=== PATIENT | male | born 1945 | race Caucasian/White ===

== ENCOUNTER 2017-04-30 20:53 | Inpatient (IN) ==
[2017-04-30] MEDS ORDERED: TYLENOL PO ONE (21:22)
[2017-04-30] MEDS ORDERED: NS 1,000 ML IV ONE ×2 (21:33→22:35)
[2017-04-30] MEDS ORDERED: ROCEPHIN 1 GM/NS 1 GM/50 ML IVPB IV ONE (21:34)
[2017-04-30] MEDS ORDERED: ZOFRAN IV ONE (21:34)
[2017-04-30] MEDS ORDERED: MORPHINE IV ONE (21:34)
[2017-04-30 22:09] LABS: BASO% 0.1 % (0.0-0.8); EOS# 0.03 X1000 (0.0-0.7); EOS% 0.2 % (0.0-10.0); HEMOGLOBIN 14.7 g/dL (14.0-18.0); IMM GRAN# 0.04 X1000 (0.0-0.04); IMM GRAN% 0.3 % (0.0-0.5); LYMPH# 0.82 X1000 (1.2-3.4); LYMPH% 5.6 % (20.5-51.1); MANUAL DIFF NEEDED? YES; MCH 32.2 PG (27-31); MCHC 34.2 g/dL (33-37); MCV 94.3 FL (81-99); MONO# 1.26 X1000 (0.11-0.59); MONO% 8.6 % (1.7-9.3); MPV 11.2 FL (7.4-10.4); NEUT% 85.2 % (42.2-75.2); PLT 191 X1000 (130-400); RBC 4.56 XMIL (4.7-6.1)
[2017-04-30 22:10] LABS: BANDS 6 % (0-1); EOS 1 % (1-10); LYMPHS 5 % (21-51); MONO 4 % (1-9)
[2017-04-30 22:19] LABS: BILIRUBIN URINE NEGATIVE (NEGATIVE); BLOOD URINE 2+ (NEGATIVE); CLARITY CLEAR (CLEAR); COLOR YELLOW; GLUCOSE URINE NEGATIVE (NEGATIVE); LEUKOCYTES URINE 2+ (NEGATIVE); NITRITE URINE POSITIVE (NEGATIVE); PROTEIN URINE 1+(30 mg/dL) mg/dL (NEGATIVE); UROBILINOGEN URINE NORMAL
[2017-04-30 22:20] LABS: INR 1.2 (0.86-1.15); PROTIME 15.5 Seconds (12.1-15.5)
[2017-04-30 22:21] LABS: PTT PL 34.5 Seconds (22.6-43.9)
[2017-04-30 22:22] LABS: URINE SOURCE CLEAN CATCH
[2017-04-30 22:23] LABS: URINE CULTURE PL NEEDED? YES; URINE EPITHELIAL CELLS <10 /HPF (<10)
[2017-04-30 22:26] LABS: ALBUMIN 4.2 g/dL (3.5-5.0); CALCIUM 9.1 mg/dL (8.8-10.2); POTASSIUM 3.4 mmol/L (3.5-5.1); TOTAL PROTEIN 6.6 g/dL (6.3-8.3)
[2017-04-30] MEDS ORDERED: MORPHINE IV PRN (22:35)
[2017-04-30] MEDS ORDERED: TYLENOL PO PRN (22:35)
--- NOTE | 2017-04-30 22:40 | PROVIDER DOCUMENTATION ---
This chart was entered by Letty Jennings Scribe, acting as scribe for Mahendra Herrera MD. HPI-General Adult - General Chief Complaint: UTI Symptoms Stated Complaint: UTI SX Time Seen by Provider: 04/30/17 21:18 Source: patient Allergies/Adverse Reactions: Patient Allergies Allergy/AdvReac Type Severity Reaction Status Date / Time promethazine HCl * Allergy Mild VOMITING Verified 04/30/17 21:12 [From Phenergan] Home Medications: Home Medication List Medication Instructions Recorded Confirmed Last Taken Type Aspirin 81 mg PO DAILY 02/28/14 04/30/17 10/22/16 History Gabapentin [Neurontin] 100 mg PO QAM 02/28/14 04/30/17 10/22/16 History Gabapentin [Neurontin] 400 mg PO QHS 02/28/14 04/30/17 10/21/16 History Gemfibrozil 600 mg PO BID 02/28/14 04/30/17 10/22/16 History Metoprolol [Lopressor] 50 mg PO DAILY 02/28/14 04/30/17 10/22/16 History Ramipril [Altace] 10 mg PO BID 02/28/14 04/30/17 10/22/16 History Allopurinol [Zyloprim] 300 mg PO DAILY 10/22/16 04/30/17 10/22/16 History Clorazepate [Tranxene] 7.5 mg PO QHS 10/22/16 04/30/17 10/21/16 History Cyanocobalamin (Vitamin B-12) 1,000 mcg PO DAILY 10/22/16 04/30/17 10/22/16 History [Cyanocobalamin] Escitalopram Oxalate [Lexapro] 10 mg PO DAILY 10/22/16 04/30/17 10/22/16 History Probenecid [Benemid] 500 mg PO DAILY 10/22/16 04/30/17 10/22/16 History Tamsulosin [Flomax] 0.4 mg PO QHS 10/22/16 04/30/17 10/21/16 History Triamterene/Hydrochlorothiazid 1 each PO BID 10/22/16 04/30/17 10/22/16 History [Triamterene-Hctz 37.5-25 mg Cp] Omeprazole [Prilosec] 40 mg PO DAILY@0700 #30 capsule. 10/23/16 04/30/17 Unknown Rx - History of Present Illness -Gen Adult Nature of Presenting Problems: PT IS A 72YOM PRESENTING TO THE ED C/O FEVER/MALAISE AND PAINFUL URINATION. PT STATES THAT AT 0230 THIS AM HE WOKE WITH CHILLS, FEVER, MALAISE AND HURTING TO URINATE. PT STATES IT WAS A SUDDEN ONSET THIS AM AND IS HAVING BILATERAL CVA PAIN WITH NAUSEA BUT NO VOMITING AT THIS TIME. NO OTHER COMPLAINTS NOTED AT THIS TIME. Location of Pain/Injury: reports: generalized Pain Radiation: reports: flank (L), flank (R) Quality of Pain: reports: aching, burning, cramping Severity: reports: moderate Onset/Duration: reports: 24 hours ago Timing: reports: still present, getting worse Context/Activities at Onset: reports: sleep Modifying Factors: improves with: urinating Associated Symptoms: reports: back/neck pain, fatigue, fever/chills, genitourinary problems, loss of appetite, malaise, muscle aches, nausea, weakness. denies: chest pain, diarrhea, syncope, vomiting, trouble walking Similar Symptoms Previously?: No Recently seen or treated by another doctor?: No Review of Systems - Adult - REVIEW OF SYSTEMS - ADULT Constitutional: reports: see HPI, chills, fever, fatique Eyes: reports: no symptoms reported Ears, Nose, Mouth & Throat: reports: no symptoms reported Cardiovascular: reports: no symptoms reported Respiratory: reports: no symptoms reported Gastrointestinal: reports: no symptoms reported Genitourinary: reports: see HPI, dysuria, flank pain. denies: frequency Musculoskeletal: reports: see HPI, back pain (BILATERAL CVA TENDERNESS), joint pain, muscle aches. denies: bone pain, neck pain Integumentary: reports: no symptoms reported Neurological: reports: no symptoms reported Psychiatric: reports: no symptoms reported Endocrine: reports: no symptoms reported Hematologic/Lymphatic: reports: no symptoms reported Allergic/Immunologic: reports: no symptoms reported All Other Systems: Reviewed and Negative Past History - Adult - PAST MEDICAL HISTORY-ADULT Review of Records: reports: Old Records Reviewed, Nursing Assessment Review, Medications Reviewed, Social history reviewed & non-contributory. Major Childhood Illnesses: reports: denies history Cardiovascular: reports: HTN, hyperlipidemia Respiratory: reports: denies history Gastrointestinal: reports: denies history Obstetrical/Gynecological: reports: denies history Genitourinary: reports: denies history Musculoskeletal: reports: denies history Neurological: reports: denies history Endocrine/Immune: reports: other (neuropathy) Other Conditions: reports: denies history - PRIOR SURGERIES/PROCEDURES Surgical/Procedure History: reports: orthopedic (extremity) - IMMUNIZATION STATUS Childhood Immunizations: See Nurse Assessment Flu Vaccine: See Nurse Assessment - FAMILY HISTORY Family History: CAD over 55 yo, CVA/TIA - SOCIAL HISTORY Smoking: non-smoker Substance Use: none/never, denies Alcohol Use Frequency: never Living Situation: alone Physical Exam-General - PHYSICAL EXAM-ADULT Initial Vital Signs Reviewed: Yes - CONSTITUTIONAL General Appearance: alert, moderate distress. negative: appears well - EYES Eyes: PERRL/EOMI, pink conjunctivae - HEAD, EARS, NOSE, MOUTH & THROAT HENMT: normocephalic/atraumatic, moist mucous membranes, normal ENT inspection, TMs normal, pharynx normal - NECK Neck: non-tender, full range of motion, supple, normal inspection - RESPIRATORY Respiratory: chest non-tender, lungs clear, normal breath sounds, no pleuratic chest pain, no respiratory distress, no accessory muscle use - CARDIOVASCULAR Cardiovascular: normal peripheral pulses, regular rate, rhythm, no edema, no gallop, no JVD, no murmur - GASTROINTESTINAL (ABDOMEN) Abdominal Exam: normal bowel sounds, non tender, soft, no organomegaly, no pulsatile mass - LYMPHATIC Lymphatic: no adenopathy - MUSCULOSKELETAL Back Exam: no vertebral tenderness, CVA tenderness (BILATERAL). negative: normal inspection, no CVA tenderness Extremity: normal range of motion, non-tender, normal gait, normal inspection, no pedal edema, no calf tenderness, normal capillary refill, pelvis stable - SKIN Integumentary: normal turgor, warm/dry, pallor. negative: normal color - NEUROLOGIC Neurologic: notary public II-XII nml as tested, grossly normal, no motor/sensory deficits - PSYCHIATRIC Psych/Mental Status: normal thought content, normal thought process, oriented x 3, depressed affect. negative: normal mood/affect Progress - PLAN OF CARE/RESULTS Progress/Plan/Lab Results: Vital Signs - 8 hr 04/30/ 21:06 Temperature 101.4 F H Pulse Rate 97 H Respiratory Rate 18 Blood Pressure 145/74 O2 Sat by Pulse Oximetry 95 Orders Category Date Time Status Cardiac Monitoring DIRECTED Care 04/30/17 21:19 Active IV Insertion ORDERED Care 04/30/17 21:19 Completed Notify of + Sepsis Screen NOW Care 04/30/17 21:19 Active BLOOD CULTURE [BLDCUL] Stat Lab 04/30/17 21:45 Ordered CBC WITH DIFF [HEME] Stat Lab 04/30/17 21:45 Ordered CK PROFILE [SP CHEM] Stat Lab 04/30/17 21:45 Ordered COMPREHENSIVE METABOLIC PANEL [CHEM] Stat Lab 04/30/17 21:45 Ordered LACTATE, PLASMA [CHEM] Stat Lab 04/30/17 21:45 Or[address]IME WITH INR PL [COAG] Stat Lab 04/30/17 21:[address] [COAG] Stat Lab 04/30/17 21:45 Ordered TROPONIN T Stat Lab 04/30/17 21:45 Ordered ua [URINALYSIS PL W/POSS RFLX CULT] [URINALYSIS] Stat Lab 04/30/17 21:45 Ordered 0.9% Sodium Chloride Inj [Ns] 1,000 ml Med 04/30/17 21:33 Active IV 999 mls/hr Acetaminophen [Tylenol] Med 04/30/17 21:22 Discontinued 650 mg PO NOW ONE CefTRIAXONE 1 GM/NS [Rocephin 1 gm/Ns] Med 04/30/17 21:34 Active 1 gm in 50 ml IV NOW Morphine Med 04/30/17 21:34 Discontinued 4 mg IV NOW ONE Ondansetron [Zofran] Med 04/30/17 21:34 Discontinued 4 mg IV NOW ONE Orders Category Date Time Status Cardiac Monitoring DIRECTED Care 04/30/17 21:19 Active IV Insertion ORDERED Care 04/30/17 21:19 Completed Notify of + Sepsis Screen NOW Care 04/30/17 21:19 Active BLOOD CULTURE [BLDCUL] Stat Lab 04/30/17 21:45 Ordered CBC WITH DIFF [HEME] Stat Lab 04/30/17 21:30 Results CK PROFILE [SP CHEM] Stat Lab 04/30/17 21:45 Ordered COMPREHENSIVE METABOLIC PANEL [CHEM] Stat Lab 04/30/17 21:45 Ordered LACTATE, PLASMA [CHEM] Stat Lab 04/30/17 21:[address]IME WITH INR [address] [COAG] Stat Lab 04/30/17 21:[address] [COAG] Stat Lab 04/30/17 21:45 Ordered TROPONIN T Stat Lab 04/30/17 21:45 Ordered ua [URINALYSIS PL W/POSS RFLX CULT] [URINALYSIS] Stat Lab 04/30/17 21:45 Ordered 0.9% Sodium Chloride Inj [Ns] 1,000 ml Med 04/30/17 21:33 Active IV 999 mls/hr Acetaminophen [Tylenol] Med 04/30/17 21:22 Discontinued 650 mg PO NOW ONE CefTRIAXONE 1 GM/NS [Rocephin 1 gm/Ns] Med 04/30/17 21:34 Active 1 gm in 50 ml IV NOW Morphine Med 04/30/17 21:34 Discontinued 4 mg IV NOW ONE Ondansetron [Zofran] Med 04/30/17 21:34 Discontinued 4 mg IV NOW ONE Vital Signs - 24 hr 04/30/17 21:06 Temperature 101.4 F H Pulse Rate 97 H Respiratory Rate 18 Blood Pressure 145/74 O2 Sat by Pulse Oximetry 95 Result Diagrams: 04/30/17 21:30 04/30/17 21:30 Departure - Departure Date of Disposition Decision: 04/30/17 Time of Disposition Decision: 22:39 DIAGNOSIS: Pyelonephritis, acute Disposition: ADMITTED INPATIENT 09 Certified Medical Emergency: Emergent Condition: Fair Referrals and Follow-Ups: Ke Lino MD [Primary Care Provider] - - Critical Care Note This patient required my direct & personal management of CC.: No This chart was documented by the indicated scribe, (Letty Jennings Scribe) and accurately reflects the services I performed and decisions made by me, Mahendra Herrera MD, as attested by the provider's signature.
[2017-05-01] MEDS: MORPHINE IV PRN ×4 (08:17→20:15)
[2017-05-01] MEDS: ZOFRAN IV PRN ×2 (08:17→16:55)
[2017-05-01] MEDS ORDERED: B & O 15A SUPP PR PRN (08:20)
[2017-05-01] MEDS: PROSCAR PO SCH (09:18)
[2017-05-01] MEDS: ASPIRIN PO SCH (09:18)
[2017-05-01] MEDS: VITAMIN B-12 PO SCH (09:18)
[2017-05-01] MEDS: NS 1,000 ML IV SCH ×2 (09:18→20:25)
[2017-05-01] MEDS: FLOMAX PO SCH ×2 (09:18→20:15)
[2017-05-01] MEDS: LEVAQUIN 500 MG/D5W 500 MG/100 ML IVPB IV SCH (09:19)
--- NOTE | 2017-05-01 13:33 | HISTORY AND PHYSICAL ---
PRIMARY CARE PHYSICIAN: Dr. Ke Lino. CHIEF COMPLAINT: Fever, chills. HISTORY OF PRESENT ILLNESS: This is a 72-year-old male with a history of BPH, hypertension and obstructive sleep apnea. He presented to the emergency room complaining of generalized body aches, fever, chills and difficulty urinating that had been present for the past few days. He was found to have a temperature of 101.4 degrees in triage. He states that he has been feeling bad for the past 5-7 days, although he has been working on getting a nondenominational ready to open tomorrow; therefore, he had worked through his illness. The night before last, he had chills and rigors evidently through the night per his . In the hours preceding coming to the emergency room, he had difficulty urinating. Begin to have perineal fullness, therefore he presented to the emergency room. He does state that he has been told he had a large prostate. He does take Flomax once a day. He does not remember his last exam nor his last PSA. PAST MEDICAL HISTORY: Hypertension, BPH, obstructive sleep apnea, peripheral neuropathy. PAST SURGICAL HISTORY: Right elbow surgery. Right rotator cuff. Hemorrhoidectomy. Right knee surgery. SOCIAL HISTORY: He lives with his . He denies alcohol, tobacco or illicit drug use. ALLERGIES: Phenergan which causes vomiting. HOME MEDICATIONS: 1. Neurontin 100 mg q.a.m. 2. Lexapro 10 daily. 3. Vitamin B 12 1000 daily. 4. Tranxene 7.5 at bedtime. 5. Aspirin 81 mg daily. 6. Allopurinol 300 daily. 7. Triamterene/hydrochlorothiazide 37.5/25 one b.i.d. 8. Flomax 0.4 at bedtime. 9. Altace 10 b.i.d. 10. Probenecid 500 daily. 11. Prilosec 40 daily. 12. Lopressor 50 daily. 13. Gemfibrozil 600 b.i.d. 14. Neurontin 400 mg at bedtime. REVIEW OF SYSTEMS: A 14 point review of systems is discussed with the patient with pertinent positives stated in HPI. He denied chest pain, palpitations, dizziness, syncope, cough, PND, orthopnea, shortness of breath, nausea, vomiting, diarrhea, constipation, black or bloody vomitus, black or bloody stools. PHYSICAL EXAMINATION: VITAL SIGNS: Blood pressure is 125/73 with a heart rate of 87, respirations are 18, temperature is 98.9 degrees, although it did max at 102 at 4 a.m. Room air saturations are 97% to 99%. HEENT: Head is normocephalic, atraumatic. Pupils equal, round, react to light. EOMS are intact. Sclerae anicteric. Mucous membranes are moist. NECK: Supple. Trachea midline. CARDIOVASCULAR: Regular rate and rhythm. S1 and S2 appreciated. PULMONARY: Breath sounds are clear with no increased work of breathing noted. GASTROINTESTINAL: Abdomen is soft, nontender, nondistended with bowel sounds in all 4 quadrants. Of note, he did have some bladder distention and suprapubic tenderness, although Rios has been placed and this has now subsided. MUSCULOSKELETAL: Good range of motion of joints. EXTREMITIES: No clubbing, cyanosis, or edema. Calves are nontender. Pulses are palpable x4. NEUROLOGIC: He is alert and oriented x3 with cranial nerves 2-12 grossly intact. DIAGNOSTICS: WBC is 14.5 with a hemoglobin of 14.7, hematocrit 43 and platelets of 191. Sodium is 136, potassium 3.4, BUN 31, creatinine 1.6 with a glucose of 161. Urinalysis is positive for nitrites. Blood: 10-20 microscopic white blood cells, 10-20 microscopic red blood cells, and 4+ bacteria. This was a clean-catch urine. ASSESSMENT AND PLAN: 1. Prostatitis. Rios has been placed. We will start Flomax twice a day. We will start Proscar daily. Levaquin for antibiotic coverage. Urine culture has been sent. We will await sensitivities and, if needed, antibiotics can be changed as appropriate. 2. Acute kidney injury. In reviewing his past labs, his creatinine was 1.4 and 1.7 in October. It looks like he has had a baseline of 1.1-1.5 as far back as 2013. We will hold his HARSHIL inhibitors, his diuretics at present, and any renal toxic medications. This could very well have a postobstructive component. We will hydrate and recheck in the morning. 3. Hypertension. At present, blood pressures are stable at 109-120s/50s-60s. Of course, we will hold his HARSHIL inhibitors and his diuretics. We will start Lopressor and then trend vital signs and treat as appropriate. 4. Neuropathy. We will continue Neurontin. 5. Deep vein thrombosis prophylaxis. We will use Lovenox and gastrointestinal prophylaxis Prilosec. Further treatments pending hospital course. Dictated by KOLBY Samuel for Johnnie Landeros MD cc: KOLBY Samuel MD
[2017-05-01] MEDS ORDERED: KLOR-CON PO ONE (14:26)
[2017-05-01] MEDS: COLACE PO SCH ×2 (16:51→20:15)
[2017-05-01] MEDS: VALIUM PO SCH (20:15)
[2017-05-02] MEDS: MORPHINE IV PRN ×3 (04:34→21:35)
[2017-05-02] MEDS: NS 1,000 ML IV SCH ×3 (04:37→21:35)
[2017-05-02 06:26] LABS: HEMATOCRIT 40.4 % (42.0-52.0); HEMOGLOBIN 13.5 g/dL (14.0-18.0); MCH 31.8 PG (27-31); MCHC 33.4 g/dL (33-37); MCV 95.3 FL (81-99); MPV 11.6 FL (7.4-10.4); RBC 4.24 XMIL (4.7-6.1)
[2017-05-02] MEDS: PRILOSEC PO SCH (06:30)
[2017-05-02 06:46] LABS: ALBUMIN 2.9 g/dL (3.5-5.0); CALCIUM 8.1 mg/dL (8.8-10.2); TOTAL BILIRUBIN 0.9 mg/dL (0.20-1.00)
[2017-05-02] MEDS ORDERED: KLOR-CON PO ONE (07:12)
[2017-05-02] MEDS: LOVENOX SUBQ SCH (08:19)
[2017-05-02] MEDS: COLACE PO SCH ×2 (08:19→21:35)
[2017-05-02] MEDS: VITAMIN B-12 PO SCH (08:19)
[2017-05-02] MEDS: LOPRESSOR PO SCH (08:19)
[2017-05-02] MEDS: PROSCAR PO SCH (08:19)
[2017-05-02] MEDS: ASPIRIN PO SCH (08:19)
[2017-05-02] MEDS: LEVAQUIN 500 MG/D5W 500 MG/100 ML IVPB IV SCH (08:19)
[2017-05-02] MEDS: FLOMAX PO SCH ×2 (08:19→21:35)
--- NOTE | 2017-05-02 10:27 | PROGRESS NOTE ---
DATE: 05/02/2017 SUBJECTIVE: The patient continues with generalized abdominal pain that is not much improved since admission. T-max was 99.7 degrees. OBJECTIVE: Vital Signs: Blood pressure is 139/75, with a heart rate of 91, respirations are 20, temperature is 98.7 degrees oral, with room air saturations of 94-96%. Cardiovascular: Regular rate and rhythm. S1 and S2 are appreciated. Pulmonary: Breath sounds are clear with no increased work of breathing noted. Gastrointestinal: Abdomen is large. It is distended. Is tender to palpation, generalized, with bowel sounds in all 4 quadrants. Extremities: No clubbing, cyanosis, or edema. Pulses are palpable x4. Calves are nontender. : Rios is patent with clear ishan urine draining. Diagnostics: Labs: WBC is 14.8, with hemoglobin 13.5, hematocrit 40.4, platelets of 170,000. Sodium is 137, potassium 3, BUN 21, creatinine 1.2, with a glucose of 177. Urine culture as well as blood cultures are pending. ASSESSMENT AND PLAN: 1. Prostatitis. 2. Acute kidney injury. 3. Hypokalemia. 4. Hypertension. 5. History of neuropathy. PLAN: We will continue with his current antibiotic regimen. Continue his current medications. As his abdomen is a little more distended and he has generalized abdominal pain, we will obtain a CT of the abdomen for further treatment. Dictated by KOLBY Samuel for Johnnie Landeros MD cc: KOLBY Samuel MD
--- NOTE | 2017-05-02 11:51 | Diag Imaging Result Doc PS360 ---
EXAM: ABDOMEN/PELVIS W/WO CONTRAST HISTORY: abd pain, leukocytosis, TECHNIQUE: CT of the abdomen with and without intravenous contrast COMMENT: There are bilateral pleural effusions with a trace effusion on the left and slightly larger effusion on the right. There is some atelectasis in the right lower lobe and middle lobe. There are no gallstones. There is some stranding of the perinephric fat bilaterally but there is no evidence of hydronephrosis or nephrolithiasis. There is fluid adjacent to the inferior tip of the right hepatic lobe. The liver, spleen, adrenal glands, and pancreas are within normal limits. There is stool throughout the colon as well as scattered diverticulosis coli. The small bowel is not distended. There is no evidence of significant adenopathy. There is no evidence of abdominal aortic aneurysm. CT of the pelvis with and without intravenous contrast: The appendix is not distended. There is marked diverticulosis of the distal descending and sigmoid colon. No evidence of acute diverticulitis is present. There is a Rios catheter in the bladder. The possibility of cystitis cannot be excluded on the basis of this study. There is no evidence of free fluid or significant adenopathy. IMPRESSION: Diverticulosis coli. Constipation. Minimal free intra-abdominal fluid. Bilateral pleural effusions and right lower lobe atelectasis. Possible cystitis. Electronically signed by Bhaskar Saunders 05/02/2017 11:49 AM
[2017-05-02] MEDS ORDERED: ANUSOL-HC CREAM TOP PRN (18:33)
[2017-05-02] MEDS ORDERED: LACTULOSE PO ONE (19:08)
[2017-05-02] MEDS ORDERED: LACTULOSE PO SCH (21:00)
[2017-05-02] MEDS: VALIUM PO SCH (21:35)
[2017-05-03 06:28] LABS: HEMATOCRIT 39.7 % (42.0-52.0); HEMOGLOBIN 13.1 g/dL (14.0-18.0); MCH 31.3 PG (27-31); MCV 94.7 FL (81-99); MPV 11.5 FL (7.4-10.4); RBC 4.19 XMIL (4.7-6.1)
[2017-05-03] MEDS: NS 1,000 ML IV SCH ×4 (06:34→20:53)
[2017-05-03] MEDS: PRILOSEC PO SCH (06:35)
[2017-05-03 06:36] LABS: AGAP 11; ALKALINE PHOSPHATASE 65 U/L (32-122); BUN 22 mg/dL (8-22); CALCIUM 8.1 mg/dL (8.8-10.2); CHLORIDE 103 mmol/L (98-107); COSMO 285; GOT 16 U/L (10-34); GPT 12 U/L (10-44); SODIUM 140 mmol/L (136-145); TCO2 25 mmol/L (25-35); TOTAL PROTEIN 6.3 g/dL (6.3-8.3)
[2017-05-03] MEDS: FLOMAX PO SCH ×2 (09:18→20:53)
[2017-05-03] MEDS: ASPIRIN PO SCH (09:18)
[2017-05-03] MEDS: VITAMIN B-12 PO SCH (09:18)
[2017-05-03] MEDS: PROSCAR PO SCH (09:18)
[2017-05-03] MEDS: COLACE PO SCH ×2 (09:18→20:53)
[2017-05-03] MEDS: LEVAQUIN 500 MG/D5W 500 MG/100 ML IVPB IV SCH (09:19)
[2017-05-03] MEDS: LOPRESSOR PO SCH (09:19)
[2017-05-03] MEDS: LACTULOSE PO SCH ×2 (09:19→20:53)
[2017-05-03] MEDS: LOVENOX SUBQ SCH (09:19)
[2017-05-03] MEDS: KLOR-CON PO SCH (11:21)
--- NOTE | 2017-05-03 11:22 | PROGRESS NOTE ---
DATE: 05/03/2017 SUBJECTIVE: The patient notes his abdominal pain is a little bit better. He is still having some pain. States he is having some difficulty with constipation. Notes that he took some medicine this morning and is hopeful that this will work. OBJECTIVE: Vital Signs: Temperature 99, 52 to 102, respiratory 18, blood pressure 140/77, sat 95% on room air. General: Patient is awake, alert, currently in mild distress secondary to pain. He is in no respiratory distress. He is pleasant to talk with. Neck: Supple. Cardiovascular: Regular rate. Chest: Clear. Abdomen: Soft, obese, diffusely mildly tender. Extremities: Moves all extremities. Neurologic: No changes. LABS: CT of the abdomen essentially normal. Potassium 3.0, WBCs 10. ASSESSMENT: 1. Hypokalemia. We will replace. 2. Acute renal failure. Creatinine is down to 1.1, which is baseline. 3. Hyperglycemia. 4. Leukocytosis, resolved. 5. Constipation. 6. Prostatitis. 7. Hypertension. 8. Klebsiella urinary tract infection. PLAN: We will decrease IV fluids to 75 mL an hour. We will change to Levaquin, as his Klebsiella is highly sensitive to Levaquin. Will continue lactulose for his constipation. If this does not give bowel movement, then we will use an enema. Hopefully will continue to improve. Further orders as needed. cc: Johnnie Landeros MD
[2017-05-03] MEDS: VALIUM PO SCH (20:53)
[2017-05-04] MEDS: NS 1,000 ML IV SCH ×2 (00:22→18:38)
[2017-05-04] MEDS: PRILOSEC PO SCH (06:25)
[2017-05-04 07:19] LABS: HEMATOCRIT 39.9 % (42.0-52.0); HEMOGLOBIN 13.5 g/dL (14.0-18.0); MCH 31.4 PG (27-31); MCHC 33.8 g/dL (33-37); MCV 92.8 FL (81-99); MPV 11.3 FL (7.4-10.4); RBC 4.3 XMIL (4.7-6.1)
[2017-05-04 07:43] LABS: AGAP 10; ALBUMIN 3.2 g/dL (3.5-5.0); ALKALINE PHOSPHATASE 53 U/L (32-122); BUN 20 mg/dL (8-22); CALCIUM 8.3 mg/dL (8.8-10.2); CHLORIDE 107 mmol/L (98-107); COSMO 285; GOT 17 U/L (10-34); GPT 15 U/L (10-44); POTASSIUM 2.8 mmol/L (3.5-5.1); SODIUM 141 mmol/L (136-145); TCO2 25 mmol/L (25-35); TOTAL PROTEIN 6.3 g/dL (6.3-8.3)
[2017-05-04] MEDS: LEVAQUIN 500 MG/D5W 500 MG/100 ML IVPB IV SCH (08:15)
[2017-05-04] MEDS: KLOR-CON PO SCH (08:16)
[2017-05-04] MEDS: FLOMAX PO SCH ×2 (08:16→21:09)
[2017-05-04] MEDS: VITAMIN B-12 PO SCH (08:16)
[2017-05-04] MEDS: ASPIRIN PO SCH (08:16)
[2017-05-04] MEDS: LOVENOX SUBQ SCH (08:16)
[2017-05-04] MEDS: LOPRESSOR PO SCH (08:16)
[2017-05-04] MEDS: COLACE PO SCH ×2 (08:16→21:09)
[2017-05-04] MEDS: PROSCAR PO SCH (08:16)
[2017-05-04] MEDS: LACTULOSE PO SCH ×2 (08:22→21:09)
[2017-05-04] MEDS ORDERED: MAGNESIUM SULFATE 2 GM/S.W.I. 2 GM/50 ML IVPB IV ONE (08:52)
[2017-05-04] MEDS ORDERED: KLOR-CON PO ONE (08:53)
--- NOTE | 2017-05-04 10:52 | PROGRESS NOTE ---
DATE: 05/04/2017 SUBJECTIVE: Mr. Dupont today refers to be doing a little better. Continues to have some dysuria symptoms and, according to him, what feels like spasms. OBJECTIVE: Vital signs: Blood pressure is 157/84, pulse of 100, respiration is 18, temperature 98.2 degrees. General: Mr. Dupont is a 72-year-old male. He is in bed. He does not seem to be in any remarkable distress. HEENT: Mucosa is pink and moist. Anicteric. Acyanotic. Neck: Supple. Chest: Good air entry bilateral. No crepitations. Abdomen: Soft, distended, mildly tender in the hypogastrium (pubic area). SHOP HELPER: Patient is awake and alert and oriented x4. LABORATORY DATA: WBC is 9.11, hemoglobin is 13.5, platelet count of 249. Chemistry is reviewed. Completely normal, except for potassium of 2.8. Urine culture on presentation shows Klebsiella oxytoca which is sensitive to levofloxacin that the patient is currently on. ASSESSMENT: 1. Klebsiella oxytoca urinary tract infection. 2. Persistent dysuria symptoms. We will continue with the current antibiotics and add phenazopyridine. 3. Acute renal failure, improved. 4. Constipation, improved. 5. Hypertension, stable. 6. Anxiety disorder. Patient was on Valium at home. 7. Hypokalemia. We will replace this and also give the patient a dose of magnesium. PLAN: So, in general I think Mr. Dupont is doing a lot better. We will give him phenazopyridine for the dysuria symptoms. Patient has been started on tamsulosin and finasteride. We will continue also on the current antibiotics. Once his dysuria symptoms improve, we would advise that he follows up with urology on outpatient basis since it is not very common for males to developed urinary tract infections, especially at this age. We would be suspecting that patient probably has an underlying prostatic disease. cc: Magdiel Dill MD
[2017-05-04] MEDS: PYRIDIUM PO SCH ×2 (12:41→21:08)
[2017-05-04] MEDS: VALIUM PO SCH (21:09)
[2017-05-05] MEDS: PYRIDIUM PO SCH (06:17)
[2017-05-05] MEDS: PRILOSEC PO SCH (06:18)
[2017-05-05 06:30] LABS: AGAP 9; BUN 19 mg/dL (8-22); CALCIUM 8.2 mg/dL (8.8-10.2); CHLORIDE 108 mmol/L (98-107); COSMO 288; POTASSIUM 2.8 mmol/L (3.5-5.1); SODIUM 143 mmol/L (136-145); TCO2 26 mmol/L (25-35)
[2017-05-05] MEDS: NS 1,000 ML IV SCH (08:16)
[2017-05-05] MEDS: LEVAQUIN 500 MG/D5W 500 MG/100 ML IVPB IV SCH (08:16)
[2017-05-05] MEDS: COLACE PO SCH (08:17)
[2017-05-05] MEDS: LOPRESSOR PO SCH (08:17)
[2017-05-05] MEDS: FLOMAX PO SCH (08:17)
[2017-05-05] MEDS: KLOR-CON PO SCH (08:17)
[2017-05-05] MEDS: ASPIRIN PO SCH (08:17)
[2017-05-05] MEDS: LOVENOX SUBQ SCH (08:17)
[2017-05-05] MEDS: LACTULOSE PO SCH (08:17)
[2017-05-05] MEDS: VITAMIN B-12 PO SCH (08:17)
[2017-05-05] MEDS: PROSCAR PO SCH (08:17)
[2017-05-05 11:57] VITALS: BP 170/103
--- NOTE | 2017-05-05 16:07 | DISCHARGE SUMMARY ---
ADMISSION DATE: 04/30/2017 DISCHARGE DATE: 05/05/2017 PRIMARY CARE PHYSICIAN: Ke Lino MD ADMISSION DIAGNOSES: 1. Prostatitis. 2. Acute kidney injury. 3. Hypertension. 4. Neuropathy. DISCHARGE DIAGNOSES: 1. Klebsiella oxytocin urinary tract infection. 2. Persistent dysuria symptoms. 3. Acute renal failure improved. 4. Constipation improved. 5. Hypertension. 6. Anxiety disorder. 7. Hypokalemia. SUMMARY OF FINDINGS: This is a 72-year-old male who presented to the emergency room with complaints of generalized body aches, fever, chills, difficulty urinating that had been present for the past few days. He was found to have a temperature of 101.4 degrees, on arrival, states he had been feeling bad for about 5-7 days. Two nights before arrival he had chills and rigors throughout the night. He has had increasing difficulty urinating, felt that he was having perineal fullness so he presented. States that he has a history of an enlarged prostate, and takes Flomax once a day. He was admitted. His Flomax was increased to b.i.d. and started on Proscar daily. Levaquin for antibiotic coverage. Urine culture did reveal a Klebsiella oxytocin. That was sensitive to the Levaquin. We did a CT of the abdomen and pelvis on that just showed diverticulosis coli and constipation, minimal free intra-abdominal fluid , bilateral pleural effusions and a right lower lobe atelectasis with possible cystitis. He has tolerated his treatment well. His white blood cell count is back to normal. His potassium remains low and we are supplementing that and it is felt that he can safely be discharged home today. DISCHARGE MEDICATIONS: Aspirin 81 mg p.o. daily. Tranxene 7.5 mg p.o. at bedtime. Vitamin B12 1000 mcg p.o. daily. Proscar 5 mg p.o. daily #30 with no refills. Levaquin 500 mg p.o. daily #5 with no refills. Lopressor 50 mg p.o. daily, Prilosec 40 mg p.o. daily at 7 a.m. Pyridium. 200 mg p.o. q.8 hours. Potassium 40 mEq p.o. daily. Flomax 0.4 mg p.o. b.i.d., allopurinol 300 mg p.o. daily. Lexapro 10 mg p.o. daily. Gabapentin 100 mg p.o. q.a.m. and 400 mg p.o. at bedtime. Gemfibrozil 600 mg p.o. b.i.d. Ramipril 10 mg p.o. b.i.d. Triamterene/ hydrochlorothiazide 37.5/25 p.o. b.i.d. FOLLOWUP: He will need to follow up with his primary care physician in 1-2 weeks and call his office for an appointment and with his urologist also in 1-2 weeks call his office for an appointment. Also repeat BMP in 1 week. DISCHARGE INSTRUCTIONS: All discharge instructions have been reviewed with the patient and he verbalizes understanding. TIME SPENT AT DISCHARGE: Thirty-five minutes. Dictated by KOLBY Clarke for Magdiel Dill MD cc: KOLBY Clarke MD Rodney W. Harney, MD MTDD
[2017-05-06] MEDS ORDERED: KLOR-CON PO SCH (09:00)
[2017-05-06] MEDS ORDERED: LEVAQUIN PO SCH (09:00)
== END 2017-05-05 13:20 | disposition home or self-care (01) ==
LOC: P.ED 20:53 → SUATTDRO 23:05 → P.MEDSURG 23:05
PROVIDERS: ATTEND Internal Medicine